=== PATIENT | male | born 1995 | race Caucasian/White ===

== ENCOUNTER 2020-01-31 21:28 | Emergency (ER) | payer BC, MEDICARE, OTHER ==
[2020-01-31 21:41] VITALS: TEMP 98.1; O2SAT 97
[2020-01-31] MEDS ORDERED: IPRATROPIUM/ALBUTEROL 3 ML VIAL NEB ONE ×2 (21:52→22:03)
[2020-01-31] MEDS ORDERED: predniSONE 20 MG TAB PO ONE (21:52)
[2020-01-31] MEDS ORDERED: MONTELUKAST 10 MG TAB PO ONE (21:52)
--- NOTE | 2020-01-31 21:55 | ED.PDOC ---
History of Present Illness - General Chief Complaint: Asthma Stated Complaint: shortness of breath Time Seen by Provider: 01/31/20 21:29 Source: patient Exam Limitations: no limitations - History of Present Illness Initial Comments: The patient is 24-year-old male presented emergency room secondary to a mild asthma exacerbation starting earlier in the day. The patient is in town from [place] and did not bring his inhalers. No fevers. No sore throat. No runny nose. No chest pain. Mild wheezing. Timing/Duration: 4-6 hours Severity: moderate Improving Factors: nothing Worsening Factors: nothing Associated Symptoms: shortness of breath Home Medications: Ambulatory Orders Albuterol Inhaler [Ventolin Hfa Inhaler] 2 puff INH Q4H PRN #1 inh 01/31/20 Montelukast [Singulair] 10 mg PO DAILY #14 tab 01/31/20 predniSONE [Prednisone] 20 mg PO DAILY #3 tab 01/31/20 Review of Systems - Review of Systems Constitutional: States: no symptoms reported EENTM: States: no symptoms reported Respiratory: States: short of breath, wheezing Cardiology: States: no symptoms reported Gastrointestinal/Abdominal: States: no symptoms reported Genitourinary: States: no symptoms reported Musculoskeletal: States: no symptoms reported Skin: States: no symptoms reported Neurological: States: no symptoms reported Endocrine: States: no symptoms reported All other Systems: No Change from Baseline Past Medical History (General) - Patient Medical History Hx Seizures: No Hx Stroke: No Hx Dementia: No Hx Asthma: Yes Hx of COPD: No Hx Cardiac Disorders: No Hx Congestive Heart Failure: No Hx Pacemaker: No Hx Hypertension: No Hx Thyroid Disease: No Hx Diabetes: No Hx Gastroesophageal Reflux: No Hx Renal Disease: No Hx Cancer: No Hx of HIV: No Hx Hepatitis C: No Hx MRSA: No Surgical History: other - Vaccination History Hx Tetanus, Diphtheria Vaccination: No Hx Influenza Vaccination: Yes Hx Pneumococcal Vaccination: No - Social History Hx Tobacco Use: No Hx Chewing Tobacco Use: No Hx Alcohol Use: No Hx Substance Use: No Hx Substance Use Treatment: No Hx Depression: Yes Feels Threatened In Home Enviroment: No Feels Threatened In a Relationship: No Hx Physical Abuse: No Hx Emotional Abuse: No Hx Suspected Abuse: No - Female History Patient is a Female of Child Bearing Age (10 -59 yrs old): No Physical Exam - Physical Exam General Appearance: Alert, Comfortable, No apparent distress Eye Exam: bilateral normal Ears, Nose, Throat: hearing grossly normal Neck: non-tender, supple Respiratory: no respiratory distress, no accessory muscle use, wheezing Cardiovascular/Chest: normal peripheral pulses, regular rate, rhythm, no edema Peripheral Pulses: radial,right: 2+, radial,left: 2+ Rectal Exam: deferred Back Exam: normal inspection Extremity: normal range of motion, no pedal edema, normal capillary refill Neurologic: marklogic developer II-XII nml as tested, alert, normal mood/affect, oriented x 3 Skin Exam: normal color Comments: Vital Signs - 24 hr 01/31/20 21:37 Temperature 98.1 F Pulse Rate [ 97 H Pulse Ox] Respiratory 20 Rate Blood Pressure 111/82 [Left Arm] O2 Sat by Pulse 97 Oximetry Progress - Progress Progress: 01/31/20 21:55 The patient is a 24-year-old male presented emergency room with an early asthma exacerbation likely triggered by environmental allergies. The patient was given a dose of Singulair, prednisone and a breathing treatment. The patient will be written for an albuterol inhaler as well as 3 days of oral prednisone to take. He can continue to take Zyrtec as needed. He will also be written for a couple of weeks of Singulair to control environmental allergies. ER warnings are given. Keep routine follow-up with primary care doctor. jeanne hodges [id number] Departure - Departure Clinical Impression: Asthma Qualifiers: Asthma severity: moderate Asthma persistence: persistent Asthma complication type: with acute exacerbation Qualified Code(s): J45.41 - Moderate persistent asthma with (acute) exacerbation Disposition: Discharge to Home or Self Care Condition: Fair Departure Forms: ED Discharge - Pt. Copy, Patient Portal Self Enrollment Diet: regular diet Activity: increase activity as tolerated Prescriptions: Albuterol Inhaler [Ventolin Hfa Inhaler] 2 puff INH Q4H PRN #1 inh PRN Reason: Shortness Of Breath Montelukast [Singulair] 10 mg PO DAILY #14 tab predniSONE [Prednisone] 20 mg PO DAILY #3 tab Home Medications: Ambulatory Orders Albuterol Inhaler [Ventolin Hfa Inhaler] 2 puff INH Q4H PRN #1 inh 01/31/20 Montelukast [Singulair] 10 mg PO DAILY #14 tab 01/31/20 predniSONE [Prednisone] 20 mg PO DAILY #3 tab 01/31/20 Additional Instructions: The patient is a 24-year-old male presented emergency room with an early asthma exacerbation likely triggered by environmental allergies. The patient was given a dose of Singulair, prednisone and a breathing treatment. The patient will be written for an albuterol inhaler as well as 3 days of oral prednisone to take. He can continue to take Zyrtec as needed. He will also be written for a couple of weeks of Singulair to control environmental allergies. ER warnings are given. Keep routine follow-up with primary care doctor.
[2020-01-31 22:19] VITALS: BP 108/78
== END 2020-01-31 22:19 | disposition home or self-care (01) ==
LOC: ER 21:28
DX: J45.41 Moderate persistent asthma with (acute) exacerbation (principal)
CPT/HCPCS: 94640; J7512; J7620